=== PATIENT | female | born 1980 | race Caucasian/White ===

== ENCOUNTER 2016-11-10 23:35 | Inpatient (IN) | payer BC ==
--- NOTE | 2016-11-11 00:20 | HP ---
Past Medical History - Primary Care Physician PCP:: Darius Kelly - Admission Chief Complaint: 36 yo P1 @ 39.3wks with LOF @ 21:20 on 11/10/16 clear fluid, minimal contructions, no VB, +FM History of Present Illness: PNI: 1. Smoker, reports quitting when found out she is , but work related nicotine exposure at [employer]; 2. Prior c/section 2007 for breech, desires History Source: Patient Limitations to Obtaining History: No Limitations - Past Medical History ...: 2 ...Para: 1 ...Term: 1 ...: 0 ...Spon : 0 ...Induced : 0 ...Multiple Gestation: 0 ...LMP: 02/09/16 ... 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 History of Recent Travel: No Home Medications - Allergies Allergies/Adverse Reactions: Allergies Allergy/AdvReac Type Severity Reaction Status Date / Time No Known Allergies Allergy Verified 10/23/13 19:58 - Home Medications Home Medications: Ambulatory Orders No Home Medications 0 dose .ROUTE UTDICT 10/23/13 Review of Systems - Review of Systems Constitutional: reports: No Symptoms Eyes: reports: No Symptoms HENT: reports: No Symptoms Neck: reports: No Symptoms Cardiovascular: reports: No Symptoms Respiratory: reports: No Symptoms Gastrointestinal: reports: No Symptoms Genitourinary: reports: No Symptoms Breasts: reports: No Symptoms Reported Musculoskeletal: reports: No Symptoms Integumentary: reports: No Symptoms Neurological: reports: No Symptoms Endocrine: reports: No Symptoms Hematology/Lymphatic: reports: No Symptoms Psychiatric: reports: No Symptoms Pain Intensity: 4 Physical Exam - Maternity Constitutional: Yes: Well Nourished Neck: Yes: WNL Lungs: Clear to auscultation Breast(s): Yes: WNL - Abdominal Exam/OB Fundal Height: 39 (EFW 2800gm) Number of Fetuses: Single Presentation: Vertex Regularity: Irregular Intensity: Mild Monitor Mode: External Heart Rate (range): 130's +accelerations, no decelleration Heart Rate Location: [facility] Category: I Accelerations: Uniform Decelerations: None - Vaginal Exam/OB Vaginal Bleediing: No Speculum Exam: Yes (Nitrazine +, grossly ruptured, leaking) Dilatation (cm): 1-2cm Effacement (%): 75% Amniotic Membrane Status: Ruptured Nitrazine Test: Positive Amniotic Fluid: Yes: Clear Presentation: Vertex/Position Station: -3 - Physical Exam Musculoskeletal: Yes: WNL Extremities: Yes: WNL Integumentary: Yes: WNL Deep Tendon Reflex Grade: Normal +2 ...Motor Strength: WNL Psychiatric: Yes: WNL Assessment/Plan 36 yo P1 with ROM, prior c/s desiring Fetus with Category I tracing and requires no intervention. Patient is not in labor and has unfavorable cervix. We discussed the treatment options including expectant management awaiting spontaneous labor vs. pitocin for labor induction. We discussed the risks and benefits of each option. The patient prefers to proceed with pitocin and monitor labor progress. I explained the risks of failed induction, tacysystole, distress, shoulder dystocia, and/or maternal trauma, hemorrhage, need for section, etc. Patient also understands risk of uterine rupture is 1% due to h/o prior c/s. The pt verbalized her understanding and requested to proceed. All method of pain relieve discussed with patient as well. Adimt to L&D IVF, NPO, Labs Start Pitocin
[2016-11-11] MEDS ORDERED: BUTORPHANOL TARTRATE 1 MG/ML VIAL IVPUSH ONE (00:41)
[2016-11-11] MEDS ORDERED: OXYTOCIN 15 UNITS/ LR 250 ML 250 ML IVPB SCH (00:45)
[2016-11-11 01:27] LABS: BASOPHIL 0.3 % (0-2.0); EOSINOPHIL 0.4 % (0-4.5); MCH 31.4 pg (25.7-33.7); MCHC 34.1 g/dl (32.0-36.0); MEAN PLT VOLUME 10.6 fl (7.5-11.1); PLATELET COUNT 155 K/MM3 (134-434); RDW 13.8 % (11.6-15.6)
[2016-11-11 01:31] VITALS: BMI 28.0
[2016-11-11 01:52] LABS: INR 0.95 (0.82-1.09); PROTHROMBIN TIME (PATIENT) 10.4 SEC (9.98-11.88)
[2016-11-11 01:55] LABS: ACTIVATED PTT 28.7 SECONDS (26.9-34.4)
[2016-11-11 02:05] LABS: CALCIUM 8.9 mg/dL (8.5-10.1); COCKROFT - GAULT 172.5925; CREATININE 0.5 mg/dL (0.55-1.02)
[2016-11-11 02:32] LABS: HIV 1 & 2 AB NEGATIVE; HIV 1 AGp24 NEGATIVE
[2016-11-11] MEDS: DEXTROSE 5%-LACTATED RINGERS 1,000 ML IV SCH ×2 (07:00→22:07)
--- NOTE | 2016-11-11 07:07 | PN ---
Progress Note, Labor Vaginal Exam #1 Labor Exam Date: 11/11/16 Labor Exam Time: 07:00 Heart Rate (range): 130's now + accels, 1 verriable decel 6:45 Dilatation: 3 Effacement (%): 80& Amniotic Membrane Status: Ruptured Presentation: Vertex/Position Station: -3 Remarks: 36 yo P1 PROM, attempting current MF status reassuring desires to continue with Risks, benefits, alternatives reviewed again will place IUPC, FSE, and offer early epidural to better monitor progress of labor
[2016-11-11] MEDS ORDERED: TUBERCULIN PPD 5 TU/0.1ML SYRINGE (IN PATIENT USE ONLY) ID ONE (09:00)
--- NOTE | 2016-11-11 09:14 | PN ---
Progress Note, Labor Vaginal Exam #2 Labor Exam Date: 11/12/16 Labor Exam Time: 09:15 Heart Rate (range): 5 min decel Dilatation: 4 Effacement (%): 80 Amniotic Membrane Status: Ruptured (12 hours) Presentation: Vertex/Position Station: -3 (Team mobilized within minuted to transfer patient to the OR for urgent c/s r/b/a explained to the patient)
[2016-11-11] MEDS ORDERED: ceFAZolin SODIUM 1 GM VIAL IVPB ONE (09:49)
[2016-11-11] MEDS ORDERED: ceFAZolin SODIUM 1 GM VIAL ONE (10:23)
[2016-11-11] MEDS ORDERED: PHENYLEPHRINE HCL 10 MG/1 ML SINGLE DOSE VIAL ONE (10:23)
[2016-11-11] MEDS ORDERED: BACITRACIN 30 GM TUBE TOPICAL OINTMENT ONE (10:26)
[2016-11-11] MEDS ORDERED: oxyCODONE HCL 5 MG TABLET PO PRN ×2 (10:33)
[2016-11-11] MEDS ORDERED: METHYLERGONOVINE MALEATE 0.2 MG/1 ML AMP IM PRN (10:33)
[2016-11-11] MEDS ORDERED: IBUPROFEN 800 MG/8 ML IJ IVPB PRN (10:33)
[2016-11-11] MEDS ORDERED: SIMETHICONE 80 MG TAB.CHEW (FP) PO PRN (10:33)
[2016-11-11] MEDS ORDERED: OXYTOCIN 20 UNITS in 0.9% NS 1,000 ML IV SCH (10:45)
[2016-11-11 10:54] LABS: ARTERIAL BLD GAS O2 SATURATION 10.5 % (90-98.9); ARTERIAL BLOOD GAS BASE EXCESS -5.5 meq/l (-2-2); ARTERIAL BLOOD GAS HCO3 23.7 meq/L (22-26); ARTERIAL BLOOD GAS PO2 13.3 mmHg (80-100); LPM/O2% 21%; PT. ON O2? NO; TYPE OF O2 ROOM AIR
[2016-11-11 10:56] LABS: ARTERIAL BLD GAS O2 SATURATION 25.2 % (90-98.9); ARTERIAL BLOOD GAS HCO3 24.4 meq/L (22-26); ARTERIAL BLOOD GAS PO2 16.2 mmHg (80-100)
[2016-11-11 10:58] LABS: LPM/O2% 21%; PT. ON O2? NO; TYPE OF O2 ROOM AIR
[2016-11-11 10:59] LABS: ARTERIAL BLOOD GAS pH 7.31 (7.35-7.45)
[2016-11-11] MEDS ORDERED: ONDANSETRON 4 MG/2 ML VIAL IVPB PRN (11:03)
[2016-11-11] MEDS ORDERED: HYDROmorphone *PCA* 10MG/50ML DISP.SYRIN PCA SCH (11:15)
--- NOTE | 2016-11-11 14:49 | PN ---
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
[2016-11-12] MEDS ORDERED: PCA PUMP KEY 1 EACH EACH ONE (06:01)
--- NOTE | 2016-11-12 09:04 | PN ---
Post Progress Note - Subjective Subjective: 36 yo P2 now s/p repeat c/s due to prolonged decel pain well controlled, no complains Post Day: 1 Type of Delivery: Repeat C/S Vital Signs: Vital Signs Temperature 98.1 F 11/12/16 06:00 Pulse Rate 82 11/12/16 06:00 Respiratory Rate 18 11/12/16 06:00 Blood Pressure 108/65 11/12/16 06:00 O2 Sat by Pulse Oximetry (%) 100 11/11/16 11:10 Breast Exam: Yes: Soft Uterus: Yes: Fundus Firm, Non-tender Incision: Yes: Dressing dry and intact Abdomen/GI: Yes: Abdomen soft Lochia: Yes: Rubra Lochia, amount: Small Extremities: Yes: Calves non-tender Activity: Ambulating - Labs Labs: CBC WBC 13.3 K/mm3 (4.0-10.0) H D 11/12/16 07:50 RBC 3.77 M/mm3 (3.60-5.2) 11/12/16 07:50 Hgb 11.9 GM/dL (10.7-15.3) 11/12/16 07:50 Hct 35.4 % (32.4-45.2) 11/12/16 07:50 MCV 94.0 fl (80-96) 11/12/16 07:50 MCHC 33.5 g/dl (32.0-36.0) 11/12/16 07:50 RDW 13.9 % (11.6-15.6) 11/12/16 07:50 Plt Count 135 K/MM3 (134-434) 11/12/16 07:50 MPV 10.3 fl (7.5-11.1) 11/12/16 07:50 Neutrophils % 84.8 % (42.8-82.8) H 11/12/16 07:50 Lymphocytes % 8.9 % (8-40) D 11/12/16 07:50 Monocytes % 5.4 % (3.8-10.2) 11/12/16 07:50 Eosinophils % 0.5 % (0-4.5) 11/12/16 07:50 Basophils % 0.4 % (0-2.0) 11/12/16 07:50 Assessment/Plan 36 yo P2 s/p Repeat c/s due to prolonged heart rate decel during attempted VSS, Afibrile h/h stable female Rh+ no breast feeding cont. routine PP care
[2016-11-12] MEDS ORDERED: BISACODYL 10 MG SUPP.RECT RC PRN (10:33)
[2016-11-12] MEDS: IBUPROFEN 600 MG TABLET (FP) PO PRN (10:53)
[2016-11-12] MEDS: ACETAMINOPHEN 325 MG TABLET (FP) PO PRN (10:53)
--- NOTE | 2016-11-12 11:53 | PN ---
Progress Note (short form) - Note Progress Note: Anesthesia POD#1 S/P Repeat under spinal and SYSTEMS ARCHITECTURE ANALYST Did well,VSS,no N/V,no itch,moving extremities well SYSTEMS ARCHITECTURE ANALYST is discontinued. A/P No complications to anesthesia seen. Gilda Dwyer MD.
--- NOTE | 2016-11-13 00:45 | OP ---
DATE OF OPERATION: 11/11/2016 PREOPERATIVE DIAGNOSIS: A 36-year-old para 1 with prior section attempted vaginal after with premature rupture of membranes, induction of labor, prolonged heart rate deceleration. PROCEDURE: Repeat section. POSTOPERATIVE DIAGNOSIS: A 36-year-old para 1 with prior section attempted vaginal after with premature rupture of membranes, induction of labor, prolonged heart rate deceleration. Viable female with Apgars 9 and 9, weight 6 pounds 3 ounces. SURGEON: Isac Tapia M.D. GRAPHICS SOFTWARE ENGINEER: Judy Jhaveri M.D. DESCRIPTION OF OPERATIVE PROCEDURE: Patient was brought urgently to the operating room where spinal anesthesia was administered. Timeout was called. Patient's nametag was matched and found to be correct. Patient was placed in dorsal supine position with left lateral displacement. Pfannenstiel skin incision was made with the scalpel and carried down to the level of fascia with the scalpel. Fascia was nicked in the midline and extended bilaterally with Duron scissors, dissected off the rectus abdominis muscle with Duron scissors. Rectus abdominis was split in the midline and dissected inferiorly. Peritoneum was identified and entered bluntly and retracted with lower blade of the Cresson. Vesicouterine peritoneum was identified, tented, and dissected bilaterally. Bladder flap created bluntly and dissected with the lower blade of the Bartolo. Uterine incision was made with the scalpel and extended bilaterally with bandage scissors. Infant's head was found to be in OT position, delivered atraumatically. Rest of the 's body and shoulders delivered atraumatically. Cord clamped and cut. Infant handed to waiting physical therapy coordinator. The placenta was expressed. Uterus was cleared of clots and debris and repaired with 0 Biosyn in 2 layers, first locking, second imbricating. Peritoneum was cleared of clots and debris and closed with 0 Biosyn. The muscle was reapproximated in the midline with 0 Biosyn and fascia was subsequently closed with 0 Vicryl after assuring excellent hemostasis. Skin was closed with 4-0 Biosyn in running fashion. Instrument, lap, sponge count was correct x2. Patient received 1000 mL of fluid. Urine output was 300 mL. Estimated blood loss 700 mL. Patient tolerated procedure well and was brought to the recovery room in stable condition. ISACRenny [id number] MTDNava
[2016-11-13] MEDS: IBUPROFEN 600 MG TABLET (FP) PO PRN (01:29)
[2016-11-13] MEDS: ACETAMINOPHEN 325 MG TABLET (FP) PO PRN (01:31)
--- NOTE | 2016-11-13 07:17 | PN ---
Post Progress Note - Subjective Subjective: 36 yo P2 POD # 2 s/p Repeat c/s + voiding, flatus, ambulating Type of Delivery: Repeat C/S Vital Signs: Vital Signs Temperature 97.9 F 11/12/16 22:00 Pulse Rate 78 11/12/16 22:00 Respiratory Rate 18 11/12/16 22:00 Blood Pressure 124/80 11/12/16 22:00 O2 Sat by Pulse Oximetry (%) 100 11/11/16 11:10 Breast Exam: Yes: Soft Uterus: Yes: Fundus Firm Incision: Yes: Sutures intact Abdomen/GI: Yes: Abdomen soft, Tolerating PO Lochia: Yes: Rubra Lochia, amount: Small Extremities: Yes: Calves non-tender Activity: Ambulating - Labs Labs: CBC WBC 13.3 K/mm3 (4.0-10.0) H D 11/12/16 07:50 RBC 3.77 M/mm3 (3.60-5.2) 11/12/16 07:50 Hgb 11.9 GM/dL (10.7-15.3) 11/12/16 07:50 Hct 35.4 % (32.4-45.2) 11/12/16 07:50 MCV 94.0 fl (80-96) 11/12/16 07:50 MCHC 33.5 g/dl (32.0-36.0) 11/12/16 07:50 RDW 13.9 % (11.6-15.6) 11/12/16 07:50 Plt Count 135 K/MM3 (134-434) 11/12/16 07:50 MPV 10.3 fl (7.5-11.1) 11/12/16 07:50 Neutrophils % 84.8 % (42.8-82.8) H 11/12/16 07:50 Lymphocytes % 8.9 % (8-40) D 11/12/16 07:50 Monocytes % 5.4 % (3.8-10.2) 11/12/16 07:50 Eosinophils % 0.5 % (0-4.5) 11/12/16 07:50 Basophils % 0.4 % (0-2.0) 11/12/16 07:50 Assessment/Plan 36 yo P2 s/p Repeat c/s due to prolonged heart rate decel during attempted VSS, Afibrile h/h stable female Rh+ no breast feeding cont. routine PP care
[2016-11-14 07:55] VITALS: BP 119/77; PULSE 72; TEMP 98.1
[2016-11-14 08:18] LABS: BASOPHIL 0.6 % (0-2.0); EOSINOPHIL 1.1 % (0-4.5); MCH 31.8 pg (25.7-33.7); MCHC 34.2 g/dl (32.0-36.0); MEAN PLT VOLUME 9.9 fl (7.5-11.1); NEUTROPHILS 69.1 % (42.8-82.8); PLATELET COUNT 177 K/MM3 (134-434); RDW 13.8 % (11.6-15.6); WHITE BLOOD COUNT 8.6 K/mm3 (4.0-10.0)
--- NOTE | 2016-11-14 09:13 | PN ---
Post Progress Note - Subjective Subjective: Patient without acute complaints. Reports tolerating oral intake without nausea or vomiting. Ambulating without dizziness. Denies fevers or chills. Pain well controlled with oral pain medication. Not Passing flatus. Post Day: 3 Type of Delivery: Repeat C/S Vital Signs: Vital Signs Temperature 98.1 F 11/14/16 07:30 Pulse Rate 72 11/14/16 07:30 Respiratory Rate 20 11/14/16 07:30 Blood Pressure 119/77 11/14/16 07:30 O2 Sat by Pulse Oximetry (%) 100 11/11/16 11:10 Uterus: Yes: Fundus Firm, Fundus below umbilicus Incision: Yes: Sutures intact Abdomen/GI: Yes: Abdomen soft, Passing flatus, Tolerating PO. No: Tender Lochia: Yes: Serosa Lochia, amount: Small Extremities: Yes: Calves non-tender. No: Edema Activity: Ambulating - Labs Labs: CBC WBC 8.6 K/mm3 (4.0-10.0) D 11/14/16 07:30 RBC 3.67 M/mm3 (3.60-5.2) 11/14/16 07:30 Hgb 11.7 GM/dL (10.7-15.3) 11/14/16 07:30 Hct 34.1 % (32.4-45.2) 11/14/16 07:30 MCV 93.0 fl (80-96) 11/14/16 07:30 MCHC 34.2 g/dl (32.0-36.0) 11/14/16 07:30 RDW 13.8 % (11.6-15.6) 11/14/16 07:30 Plt Count 177 K/MM3 (134-434) D 11/14/16 07:30 MPV 9.9 fl (7.5-11.1) 11/14/16 07:30 Neutrophils % 69.1 % (42.8-82.8) 11/14/16 07:30 Lymphocytes % 21.9 % (8-40) D 11/14/16 07:30 Monocytes % 7.3 % (3.8-10.2) 11/14/16 07:30 Eosinophils % 1.1 % (0-4.5) D 11/14/16 07:30 Basophils % 0.6 % (0-2.0) 11/14/16 07:30 Assessment/Plan 36 yo POD # 3 s/p repeat delivery, failed TOLAC, doing well 1. Patient stable for discharge home today. 2. Patient encouraged to contact MD for: - Severe pain not controlled by oral pain medication - Fevers or chills - Nausea or vomiting, intolerance of oral intake - Incision redness, tenderness or discharge 3. Patient to follow up in office in 1-2 weeks for incision check, 4-6 weeks for visit
--- NOTE | 2016-11-14 09:18 | DS ---
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 Vital Signs: Vital Signs Temperature 98.1 F 11/14/16 07:30 Pulse Rate 72 11/14/16 07:30 Respiratory Rate 20 11/14/16 07:30 Blood Pressure 119/77 11/14/16 07:30 O2 Sat by Pulse Oximetry (%) 100 11/11/16 11:10 Labs: CBC, BMP 11/14/16 07:30 11/11/16 00:50 Delivery - Delivery Section: Repeat, Low Flap Transverse Type of Anesthesia: Spinal Episiotomy/Laceration: None EBL (cc): 700 Delivery, Single - Stages of Labor Date 1st Stage Initiatied: 11/11/16 Time 1st Stage Initiated: 19:30 Date of Delivery: 11/11/16 Time of Delivery: 09:56 Time Placenta Delivered: 09:58 Placenta: Yes: Expressed - Condition of Medical Records Supervisor/Assistant Hall Director Present: Yes Name: Mike Dixon Gender: Female Weight: 6 lb 3 oz Position: Right, OT Total Hours ROM (Hrs/Mins): 12hrs 38min - 1 Minute Total Score: 9 5 Minutes Total Score: 9 - Feeding Plan Initial Plan: Elected not to breastfeed exclusively throughout hospitalization Discharge Summary Reason For Visit: LABOR Current Active Problems delivery due to maternal disorder (Acute) Failed trial of labor (Acute) Procedures: Principal: delivery Other Procedures: augmentation with pitocin Hospital Course: patient admitted 11/11 for PROM augmented with pitocin Noted to have 5 minute deceleration, for delivery patient remained afebrile, vital signs stable for discharge home POD #3 Condition: Good - Instructions Diet, Activity, Other Instructions: Physical activity Resume your normal everyday activity as tolerated no heavy lifting or exercise until seen by your surgeon. You may walk unlimited kell of and climb stairs. You may resume driving the car when you feel safe and comfortable behind the wheel. No sexual activity as instructed. Wound care If you have a bandage, leave it on, and keep dry for 48-72 hours. After that time discard the outer bandage. If they are tapes on the skin under the out of bandage leave them in place. They will peel off in the next 7 to 10 days. Do Not Peel them off. You may shower the day after surgery. If there are tapes present on the skin, you may shower over them. Diet There are no dietary restrictions. Eat healthy, high-fiber foods. Drink 6 to 8 glasses of liquid each day. This will assist in keeping your bowels are regular. Pain management You may take Tylenol or acetaminophen or Ibuprofen (for example, Motrin, Advil etc.) from my pain prescription medication is ordered should be taken as prescribed for moderate to severe pain. Call MD for any of the following: Severe pain not relieved by medication Fever of 101 or higher Excessive bleeding or drainage on dressing Inability to urinate Referrals: Darius Kelly MD [Staff Physician] - Disposition: HOME - Home Medications Comprehensive Discharge Medication List: Ambulatory Orders No Home Medications 0 dose .ROUTE UTDICT 10/23/13 Pediatric Multivit Comb No.42 [Flintstones] 1 tab PO DAILY 11/11/16 Ibuprofen [Motrin -] 600 mg PO QID #60 tablet 11/14/16 Oxycodone HCl/Acetaminophen [Percocet 5-325 mg Tablet -] 1 - 2 tab PO Q6H #20 tab MDD 6 11/14/16
--- NOTE | 2016-11-15 13:28 | PATH ---
Surgical Pathology Report Patient Name: YOLANDE SILVEIRA Med. Rec. 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 Specimen(s) Received PLACENTA Clinical History , 39.3 weeks, advanced maternal age Repeat c/section Final Diagnosis PLACENTA, DELIVERY: FOCALLY DISRUPTED, SMALL (<400 GM), THIRD TRIMESTER PLACENTA WITH MODERATE PREVILLOUS, PERIVILLOUS, AND PRECHORIONIC FIBRIN DEPOSITION, THREE VESSEL UMBILICAL CORD, AND PLACENTAL MEMBRANES WITH FOCAL AMNION HYPERPLASIA. Electronically Signed Rai Rider M.D. Gross Description The specimen is received fresh, labeled "placenta" and is a 342 gram, 16.5 x 14.0 x 2.3 cm placenta with attached membranes and umbilical cord. The attached membranes are guzman, translucent with focal opacities and insert marginally. The umbilical cord measures 14 cm in length and averages 1.3 cm in diameter. The cord inserts eccentrically, 2 cm to the nearest margin. No true knots or strictures are identified. Cut surface of the umbilical cord reveals 3 vessels. The surface is caraballo-blue with fibrin deposition and appropriate caliber vessels. The maternal surface is red-brown with focal defects. Sectioning reveals red-brown, spongy parenchyma. No focal lesions are identified. Paratransit Operator sections are submitted in three cassettes as follows: 1- membrane rolls and umbilical cord; 2-3- full thickness sections of placenta. 11/14/2016 [facility]/14/2016
== END 2016-11-14 10:05 | disposition home or self-care (01) | DRG 766 ==
LOC: JLDR 23:35 → J3W 11-11 13:20
PROVIDERS: ADMIT Obstetrics & Gynecology; ATTEND Obstetrics & Gynecology
PROC: 10D00Z1 Extraction of Products of Conception, Low, Open Approach (ICD-10-PCS; principal; 2016-11-11 09:43)
DX: O76 Abnormality in fetal heart rate and rhythm complicating labor and delivery (principal); O34.211 Maternal care for low transverse scar from previous cesarean delivery; O66.41 Failed attempted vaginal birth after previous cesarean delivery; Z3A.39 39 weeks gestation of pregnancy; Z37.0 Single live birth
CPT/HCPCS: 36415; 36600; 80048; 82803; 85025; 85610; 85730; 86593; 86850; 86900; 86901; 87389; 88307-TC

== ENCOUNTER 2017-01-27 06:08 | Day surgery (SDC) | payer BC ==
[2017-01-27 08:30] VITALS: BMI 23.9
--- NOTE | 2017-01-27 10:10 | HP ---
Past Medical History - Primary Care Physician PCP:: Darius Kelly - Admission Chief Complaint: 36yo P2 admitted for surgical sterilization. 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: No: Alzheimer's, CVA, Dementia, Migraine, Multiple Sclerosis, Peripheral Neuropathy, Parkinson's, Seizure, Syncope, TIA, Vertigo, Other Cardiovascular: No: AFIB, Aneurysm, Aortic Insufficiency, Aortic Stenosis, CAD, CHF, Deep Vein Thrombosis, HTN, Hyperlipdemia, MA, Mitral Insufficiency, Mitral Stenosis, Murmur, Pulmonary Hypertension, Other Pulmonary: No: Asthma, Bronchitis, Cancer, COPD, O2 Dependent, Pneumonia, Previously Intubated, Pulmonary Embolus, Pulmonary Fibrosis, Sleep Apnea, Other Gastrointestinal: No: Ascites, Cancer, Constipation, Crohn's Disease, Diverticulitis, Diverticulosis, Esophageal Varices, Gastritis, GERD, GI Bleed, Hemorrhoids, Hiatal Hernia, Inflamatory Bowel Disease, Irritable Bowel Disease, Pancreatitis, Peptic Ulcer Disease, Ulcerative Colitis, Other Hepatobiliary: No: Cirrhosis, Cholelithiasis, Cholecystitis, Choledocholithiasis , Hepatitis A, Hepatitis B, Hepatitis C, Other Renal/: No: Renal Failure, Renal Inusuff, BPH, Cancer, Hematuria, Hemodialysis , Neurogenic Bladder, Renal Calculi, UTI, Other Reproductive: No: Ectopic , Endometriosis, Fibroids, PID, Polycystic Ovary Syndrome, Postmenopausal, Other ...Para: 2 Heme/Onc: No: Anemia, B12 Deficiency, Bleeding Disorder, Cancer, Current Chemotherapy, Current Radiation Therapy, Hemochromatosis, Hypercoaguable State, Myeloproliferative Synd, Sickle Cell Disease, Sickle Cell Trait, Thrombocytopenia, Other Infectious Disease: No: AIDS, C-Diff, Herpes Zoster, HIV, MRSA, STD's, Tuberculosis, VREF, Other Psych: No: Addictions, Anxiety, Bipolar, Depression, Panic, Psychosis, Schizophrenia, Other Musculoskeletal: No: Bursitis, Chronic low back pain, Hemiparesis, Hemiplegia, Osteoarthritis, Paraplegia, Other Rheumatology: No: Fibromyalgia, Gout, Lupus, Rheumatoid Arthritis, Sarcoidosis, Vasculitis, Other ENT: No: Allergic Rhinitis, Sinusitis, Other Endocrine: No: Livingston's Disease, [place]'s Disease, Diabetes Insipidus, Diabetes Mellitus, Hyperparathyroidism, Hyperthyroidism, Hypothyroidism, Osteopenia, SIADH, Other Dermatology: No: Basal Cell, Cellulitis, Eczema, Melanoma, Psoriasis, Squamous Cell, Other - Past Surgical History Past Surgical History: Yes: (x 2) Hx Myomectomy: No Hx Transabdominal Cerclage: No - Smoking History Smoking history: Former smoker Have you smoked in the past 12 months: Yes Aproximately how many cigarettes per day: 0 If you are a former smoker, when did you quit?: 02/2016 - Alcohol/Substance Use Hx Alcohol Use: Yes (occassional2/mo) History of Substance Use: reports: None - Social History Usual Living Arrangement: Yes: With Child ADL: Independent 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 History of Recent Travel: No Home Medications - Allergies Allergies/Adverse Reactions: Allergies Allergy/AdvReac Type Severity Reaction Status Date / Time No Known Allergies Allergy Verified 01/27/17 08:22 - Home Medications Home Medications: Ambulatory Orders No Home Medications 0 dose .ROUTE UTDICT 10/23/13 Family Disease History - Family Disease History Family History: Denies Review of Systems - Review of Systems Constitutional: reports: No Symptoms Eyes: reports: No Symptoms HENT: reports: No Symptoms Neck: reports: No Symptoms Cardiovascular: reports: No Symptoms Respiratory: reports: No Symptoms Gastrointestinal: reports: No Symptoms Genitourinary: reports: No Symptoms Breasts: reports: No Symptoms Reported Musculoskeletal: reports: No Symptoms Integumentary: reports: No Symptoms Neurological: reports: No Symptoms Endocrine: reports: No Symptoms Hematology/Lymphatic: reports: No Symptoms Psychiatric: reports: No Symptoms Pain Intensity: 0 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 Vital Signs: Vital Signs Temperature 98.2 F 01/27/17 08:50 Pulse Rate 68 01/27/17 08:50 Respiratory Rate 18 01/27/17 08:50 Blood Pressure 97/61 01/27/17 08:50 O2 Sat by Pulse Oximetry (%) 99 01/27/17 08:49 Constitutional: Yes: Well Nourished, No Distress, Calm Eyes: Yes: WNL, Conjunctiva Clear, EOM Intact HENT: Yes: WNL, Atraumatic, Normocephalic Neck: Yes: WNL, Supple, Trachea Midline Cardiovascular: Yes: WNL, Regular Rate and Rhythm Respiratory: Yes: WNL, Regular, CTA Bilaterally Gastrointestinal: Yes: WNL, Normal Bowel Sounds, Soft ...Rectal Exam: Yes: WNL Renal/: Yes: WNL Pelvis: Yes: WNL External Genitalia: Yes: Normal Internal Exam Deferred: No Vaginal Exam: Yes: Normal Cervix: Yes: Normal Uterus: Yes: Normal Adnexa: Normal: Left, Right Breast(s): Yes: WNL Musculoskeletal: Yes: WNL Extremities: Yes: WNL Edema: No Integumentary: Yes: WNL Neurological: Yes: WNL, Alert, Oriented ...Motor Strength: WNL Psychiatric: Yes: WNL, Alert, Oriented Assessment/Plan 36yo P2 admitted for surgical sterilization. The pt prefers laparoscopic bilateral tubal ligation. We had discussed the risks, benefits, alternatives of surgery at length including but not limited to infection, bleeding, scarring, perforation, amenorrhea, infertility, hysterectomy, injury to surrounding/ underlying organs or structure, need for additional surgery to repair/treat any complications, etc. The patient verbalized understanding and requested to proceed with surgery. I emphasized that all surgeries have risks and no guarantees can be provided.
[2017-01-27] MEDS ORDERED: MIDAZOLAM HCL 2 MG/2 ML SINGLE DOSE VIAL ONE (10:17)
[2017-01-27] MEDS ORDERED: ROCURONIUM BROMIDE 50 MG/5 ML VIAL ONE (10:26)
[2017-01-27] MEDS ORDERED: ceFAZolin SODIUM 1 GM VIAL IVPB ONE (10:34)
[2017-01-27] MEDS ORDERED: BUPIVACAINE HCL/PF 0.5% (5MG/ML) 10 ML VIAL ONE (10:36)
[2017-01-27] MEDS ORDERED: NEOSTIGMINE METHYLSULFATE 0.5 MG/ML - 10 ML MDV ONE (10:37)
[2017-01-27] MEDS ORDERED: PROPOFOL 20 ML ONE (10:41)
[2017-01-27] MEDS ORDERED: BUPIVACAINE HCL/PF 0.5% (5MG/ML) 10 ML VIAL IJ ONE ×2 (10:59)
--- NOTE | 2017-01-27 11:25 | OP ---
Operative Note - Note: Operative Date: 01/27/17 Pre-Operative Diagnosis: Surgical sterilization Operation: Laparoscopic BTL Findings: Normal uterus, ovaries, tubes. Normal abdomen, liver, stomach bowel Post-Operative Diagnosis: Same as Pre-op Surgeon: Darius Kelly Net Maker: Judy Jhaveri Anesthesiologist/PHOTOGRAPHIC EQUIPMENT INSPECTOR: Mery Mccormick Anesthesia: General Specimens Removed: None Estimated Blood Loss (mls): 5 Drains & Tubes with Location: [place]shaw catheter Drains, Volume Out (mls): 50 Blood Volume Replaced (mls): 0 Fluid Volume Replaced (mls): 700 Operative Report Dictated: Yes
[2017-01-27] MEDS ORDERED: ONDANSETRON 4 MG/2 ML VIAL ONE (11:28)
[2017-01-27] MEDS ORDERED: ACETAMINOPHEN INJECTION 100 ML IVPB ONE (11:28)
[2017-01-27] MEDS ORDERED: KETOROLAC TROMETHAMINE 30 MG/1 ML VIAL IVPUSH ONE (11:30)
[2017-01-27] MEDS ORDERED: ONDANSETRON 4 MG/2 ML VIAL IVPUSH PRN (11:30)
[2017-01-27] MEDS ORDERED: LACTATED RINGERS SOLUTION 1,000 ML IV SCH (11:30)
[2017-01-27] MEDS ORDERED: ACETAMINOPHEN 1000 MG/100 ML VIAL (NON FORMULARY) IVPB ONE (11:45)
[2017-01-27] MEDS ORDERED: KETOROLAC TROMETHAMINE 30 MG/1 ML VIAL ONE (11:52)
[2017-01-27 13:53] VITALS: BP 97/66; PULSE 56; TEMP 97.6
--- NOTE | 2017-01-28 09:31 | OP ---
DATE OF OPERATION: 01/27/2017 PREOPERATIVE DIAGNOSIS: Surgical sterilization. POSTOPERATIVE DIAGNOSIS: Surgical sterilization. PROCEDURE: Laparoscopic bilateral tubal ligation via fulguration. SURGEON: Darius Kelly MD COMMUNITY LIVING INSTRUCTOR: Judy Jhaveri MD ANESTHESIOLOGIST: Dr. Ordonez ANESTHESIA: General. COMPLICATIONS: None. ESTIMATED BLOOD LOSS: 5 mL. URINE OUTPUT: 50 mL. INTRAVENOUS FLUIDS: Crystalloid, 700 mL. PATHOLOGY: None. FINDINGS: Examination under anesthesia revealed a small slightly retroverted uterus with no pelvic or adnexal masses. Laparoscopy revealed a small normal uterus with normal fallopian tubes and ovaries. Normal bowel, liver, stomach were also visualized. DESCRIPTION OF PROCEDURE: The patient was met preoperatively. Risks, benefits, and alternatives of surgery were discussed in details. All questions were answered. The patient was then brought to the OR with the IV running. The patient was placed on the surgical table in the supine position. The general anesthesia was achieved without difficulty. The patient was then placed in a dorsal lithotomy position using adjustable Jacky stirrups. She was examined under anesthesia with the findings as described above. The patient was then prepped and draped in the usual sterile fashion. A Bradshaw catheter was inserted inside the bladder and left to drain to gravity. A HUMI uterine manipulator was also inserted without complications. The surgeons then regloved and proceeded with the operation. A 5-mm infraumbilical incision was made with the knife. An Optiview trocar was used for the umbilical incision. Intraperitoneal placement was confirmed with direct visualization. Pneumoperitoneum was then insufflated using CO2 gas with the intraabdominal pressure limited to 15 mmHg. Survey of the abdomen and pelvis revealed the findings as described previously. A second 5-mm trocar was inserted in the midline approximately 3 cm above the pubic symphysis. The second trocar was placed under direct visualization without complications. Bipolar cautery was then used to grasp the left fallopian tube. The fallopian tube was followed to the fimbriated end. The mid-portion of the fallopian tube was cauterized for the length of approximately 3 cm with good results. The right fallopian tube was also grasped using bipolar cautery. The right fallopian tube was also traced to the fimbriated end. The mid-portion of the right fallopian tube was also cauterized for the length of approximately 3 cm with good result. Once the procedure was completed, good hemostasis was confirmed. All of the instruments were removed from the patient. Pneumoperitoneum was reduced. The skin incisions were closed with a 4-0 Biosyn suture with good hemostasis and approximation. Marcaine 0.5% was used for local anesthesia for the incision sites. The HUMI and Bradshaw catheter were removed. The patient was transferred to the recovery room in stable condition. Sponge, lap, and instrument counts were correct. Renny [id number]
== END 2017-01-27 14:00 | disposition home or self-care (01) ==
LOC: JASU-SURG 06:08
PROVIDERS: ATTEND Obstetrics & Gynecology
PROC: 0U574ZZ Destruction of Bilateral Fallopian Tubes, Percutaneous Endoscopic Approach (ICD-10-PCS; principal; 2017-01-27 10:00)
DX: Z30.2 Encounter for sterilization (principal)
CPT/HCPCS: 94760